=== PATIENT | male | born 2000 | race African-American/Black ===

== ENCOUNTER 2020-05-02 04:27 | Emergency (ER) | payer SELFPAY ==
[~2020-05-02] VITALS: Ht 182.9 cm; Wt 61.0 kg
[2020-05-02 04:39] VITALS: BP 116/86
== END 2020-05-02 05:40 | disposition left against medical advice (07) ==
LOC: ER 04:27
DX: Z53.21 Procedure and treatment not carried out due to patient leaving prior to being seen by health care provider (principal); R07.89 Other chest pain